=== PATIENT | female | born 1945 | race Caucasian/White ===

== ENCOUNTER 2016-06-01 12:25 | Emergency (ER) | payer OTHER ==
[~2016-06-01] VITALS: Ht 157.5 cm; Wt 49.9 kg
[~2016-06-01 12:25] MED LIST: ASPI81CH43 PO; ATOR20TA50 PO; KEP500T PO; PANT40TA2 PO
[2016-06-01] MEDS ORDERED: SODIUM CHLORIDE 0.9% 1,000 ML IV ONE (12:34)
[2016-06-01 13:01] LABS: Basophils # (auto) 0.1 uL; Basophils % (auto) 0.5 % (0.0-2.0); DEFINITIVE VIEW TRANSMISSION; Eosinophils # (auto) 0 uL; Eosinophils % (auto) 0.2 % (0.0-7.0); Hematocrit 16.3 % (36.0-46.0); Lymphocytes # (auto) 2.7 uL; Lymphocytes % (auto) 27.1 % (10.0-50.0); Mean Corpuscular Hemoglobin 29.9 pg (28.0-32.0); Mean Corpuscular Hgb Conc. 30.4 g/dL (32.0-36.0); Mean Corpuscular Volume 98.3 fL (80.0-100.0); Mean Platelet Volume 7.2 fL (7.4-10.4); Monocytes # (auto) 0.4 uL; Monocytes % (auto) 4.3 % (0.0-12.0); Neutrophils # (auto) 6.8 uL; Neutrophils % (auto) 67.9 % (37.0-80.0); Platelet Count (auto) 426 10^3/uL (140-450); Red Cell Distribution Width 18.5 % (11.6-16.0)
[2016-06-01 13:12] LABS: INR 1.08 (0.9-1.15); Partial Thromboplastin Time 26.9 sec (22.64-33.71); Prothrombin Time 11.1 sec (9.37-12.3)
[2016-06-01 13:21] LABS: Hemoglobin 4.9 g/dL (12.2-16.2)
[2016-06-01 13:26] LABS: Albumin 1.4 g/dL (3.4-5.0); BUN/Creatinine Ratio 33.9; Calcium 10.8 mg/dL (8.5-10.1); Magnesium 2.8 mg/dL (1.6-2.6); Potassium 4.7 mmol/L (3.5-5.1)
[2016-06-01 13:28] LABS: Bilirubin, Total 0.4 mg/dL (0.2-1.0); Total Protein 4.2 g/dL (6.4-8.2)
[2016-06-01] MEDS ORDERED: MIDAZOLAM DRIP 100 mg/100mL NS 100 ML IV ONE (13:28)
[2016-06-01] MEDS ORDERED: MIDAZOLAM DRIP 100 mg/100mL NS 100 ML IV SCH (13:30)
[2016-06-01 14:00] VITALS: BP 85/51
[2016-06-01 14:08] LABS: B-Type Natriuretic Peptide 1965.81 pg/mL (0-100); Temperature: 23.1 C (20.0-25.0)
[2016-06-01] MEDS ORDERED: DOPamine 1600MCG/ML 250 ML IV ONE (14:15)
[2016-06-01 14:25] LABS: Ovalocytes FEW; Platelet Estimate Adequate
[2016-06-01 15:55] VITALS: BP 93/34
[2016-06-01] MEDS ORDERED: EPINEPHrine HCL 1 MG/10 ML SYRG IV ONE (22:00)
[2016-06-01] MEDS ORDERED: SODIUM BICARBONATE 8.4% INJ 50ML SYRINGE IV ONE (22:00)
== END 2016-06-01 16:24 | disposition expired ==
LOC: EDBD 12:25 → EDUNIT# 12:25 → ER 12:26
DX: I46.9 Cardiac arrest, cause unspecified (principal); J81.1 Chronic pulmonary edema; D64.9 Anemia, unspecified; R74.8 Abnormal levels of other serum enzymes; E11.21 Type 2 diabetes mellitus with diabetic nephropathy; E03.9 Hypothyroidism, unspecified; E43 Unspecified severe protein-calorie malnutrition; F17.210 Nicotine dependence, cigarettes, uncomplicated; I11.0 Hypertensive heart disease with heart failure; I50.9 Heart failure, unspecified; J44.9 Chronic obstructive pulmonary disease, unspecified; Z79.82 Long term (current) use of aspirin; Z99.81 Dependence on supplemental oxygen
CPT/HCPCS: 31500; 36415; 36600; 71010; 80053; 82805; 83735; 83880; 84443; 84484; 85025; 85379; 85610; 85730; 86850; 86900; 86901; 86920; 87070; 87077; 87186; 87205; 92950; 93005; 94002; 96365; 96366; 96368; 99291; J0171; J7030; J7040; 36430